=== PATIENT | female | born 1975 | race Caucasian/White ===

== ENCOUNTER → 2024-06-09 08:33 | Outpatient (REF) | payer BC, SELFPAY | LOC: WDC 08:33 | PROVIDERS: ATTENDING PHYSICIAN Internal Medicine | DX: Z12.31 Encounter for screening mammogram for malignant neoplasm of breast (principal) | CPT/HCPCS: 77063; 77067 ==

== ENCOUNTER → 2024-07-31 15:11 | Outpatient (REF) | payer BC, SELFPAY ==
[2024-07-31 16:22] LABS: % Basophils 0.8 % (0-2); % Eosinophils 3.4 % (0-6); % Immature Granulocytes 0.3 % (0-0.5); % Lymphocytes 49.5 % (20.5-51.1); % Monocytes 6.2 % (1.7-9.3); % Neutrophils 39.8 % (42.2-75.2); Absolute Basophils 0.1 10^3/uL (0-0.2); Absolute Eosinophils 0.2 10^3/uL (0-0.7); Absolute Monocytes 0.4 10^3/uL (0.1-0.6); Absolute Neutrophils 2.4 10^3/uL (1.4-6.5); Hematocrit 32.9 % (37.0-47.0); Hemoglobin 10.7 g/dL (12.0-16.0); Mean Corp Hgb Conc. 32.5 g/dL (33.0-37.0); Mean Corpuscular Hgb 27.2 pg (27.0-31.0); Mean Corpuscular Volume 83.5 fL (81.0-99.0); Mean Platelet Volume 9.5 fL (7.4-10.4); Nucleated Red Blood Cells % 0 %; Platelet Count 366 10^3/uL (130-400); Red Blood Cell Count 3.94 10^6/uL (4.20-5.40); Red Cell Dist. Width 13.8 % (11.5-14.5); White Blood Cell Count 6.1 10^3/uL (4.8-10.8)
[2024-07-31 16:28] LABS: INR 0.96; PT 13.1 Sec (11.4-14.6)
[2024-07-31 16:50] LABS: FSH 17.1 mIU/ml
[2024-07-31 17:04] LABS: TSH Reflex To Free T4 1.18 uIU/ml (0.47-4.68)
[2024-07-31 17:06] LABS: Estradiol 74.4 pg/ml
== END ==
LOC: RAD 15:11
PROVIDERS: ATTENDING PHYSICIAN Obstetrics & Gynecology; FAMILY PHYSICIAN Internal Medicine
DX: N92.0 Excessive and frequent menstruation with regular cycle (principal)
CPT/HCPCS: 36415; 76830; 76856; 82670; 83001; 83002; 84443; 85025; 85610; 85730

== ENCOUNTER 2025-02-16 21:17 | Inpatient (IN) | payer BC, SELFPAY ==
[2025-02-16 13:33] VITALS: BP 142/83
--- NOTE | 2025-02-16 16:28 | ED.GENMED ---
History of Present Illness
General
Chief Complaint: Eye Problems
Source: patient
Exam Limitations: none
Time Seen by Provider: 02/16/25 15:38
Nursing documentation reviewed up to this point in time: agreed with
History of Present Illness
History of Present Illness:
49-year-old female with history of celiac disease who presents to the emergency department for evaluation of right eye pain and swelling, double vision. Patient reports that Tuesday she woke up with swelling and discomfort around the right eye.
She says that she has a history of multiple allergies to food and initially thought it could be an allergic reaction to something she ate for dinner. She went to see her primary doctor and was told to trial antihistamines. She says that she has
been taking Benadryl but eye puffiness has not improved and she is having increasing pain around the eye. She says she is having worsening double vision since yesterday and decided to come to the ER for assessment. She has not had any rash�no
redness or lesions noted. She denies any redness of the eye itself. She denies any headache. She denies trauma to the eye. She denies any other acute complaints.
Past History
Past History
ED Past Medical History: Other (Migraines, COVID, Celiacs disease); Negative Asthma, HTN, Hypercholesterolemia or NIDDM
ED Past Surgical History:
Social History
Tobacco: Former smoker
Alcohol: None
Drug: None
Personal:
Living: with family
Review of Systems
Review of Systems
All Other Systems: ROS reviewed and negative except as documented in HPI and ROS
Constitutional: Denies fever or chills
EENT: Reports other (Double vision, swelling and pain right eye)
Respiratory: Denies trouble breathing
Cardiac: Denies chest pain
ABD/GI: Denies abdominal pain, vomiting or diarrhea
Skin: Denies rash
Neurological: Reports other (Diplopia); Denies headache
Phy Exam
Physical Exam
Physical Exam:
General: Awake, alert, oriented x3; no acute distress
Head: Normocephalic, atraumatic
Eyes: Patient has right periorbital edema, no erythema or rash noted; conjunctiva normal�specifically no conjunctival injection in the right; she has ophthalmoplegia on lateral gaze in the right eye, extraocular movements are intact in the left eye;
no proptosis
Ears: Right external ear and canal clear, TM clear on the right
Throat: Airway intact, handling secretions�no perioral swelling, no swelling of the tongue or uvula
Neck: Trachea midline, supple without meningismus
Lungs: Breathing comfortably with no distress
Heart: Regular rate
Neuro: Ophthalmoplegia right eye as above, cranial nerves otherwise intact, motor and sensory intact in all extremities, speech fluid without dysarthria or aphasia
Skin: No rash noted
Extremities: No edema in extremities, equal pulses in all extremities
Scores
Heart Failure Risk
Heart Failure Risk Score: Not Applicable
Heart Score for Chest Pain Patients
STEMI patient?: Not applicable
Withdrawal Assessment of Alcohol
Withdrawal Assessment Completed?: Not applicable
Course
Orders/Labs/Results
Orders:
Orders
02/16/25 15:51
Visual Acuity- Treatment ONCE
02/16/25 16:24
CT Orbits With Iv Contrast Urgent
Comment:
Reason For Exam: right eye pain and swelling, c/f orbital celluliti
02/16/25 16:25
CT Head W/o Iv Contrast Urgent
Comment:
Reason For Exam: right CN 6 palsy
Test Result ONCE
02/16/25 17:37
Complete Blood Count/With Diff Urgent
Comprehensive Metabolic Panel Urgent
HCG, Serum Qualitative Screen Urgent
02/16/25 19:19
Acetaminophen [Tylenol] 1,000 mg PO NOW STA
Abnormal Lab Results
02/16/25
17:37
Hgb 11.5 L g/dL
(12.0-16.0)
Hct 35.0 L %
(37.0-47.0)
MCHC 32.9 L g/dL
(33.0-37.0)
RDW 14.6 H %
(11.5-14.5)
Chloride 115 H mmol/L
(98-107)
Carbon Dioxide 20 L mmol/L
(22-30)
Glucose 100 H mg/dl
(70-99)
02/16/25 17:37
02/16/25 17:37
Vital Signs
Initial and Last Documented VS:
Initial Vital Signs
Temp Pulse Resp BP Pulse Ox
36.8 C 96 16 142/83 97
02/16/25 13:33 02/16/25 13:33 02/16/25 13:33 02/16/25 13:33 02/16/25 13:33
Last Documented Vital Signs
Temp Pulse Resp BP Pulse Ox
36.8 C 82 16 114/66 98
02/16/25 13:33 02/16/25 19:31 02/16/25 19:31 02/16/25 19:31 02/16/25 19:31
MDM/Problems Addressed
Differential Diagnosis Includes:
Orbital cellulitis, retrobulbar hematoma, angioedema, stroke less likely clinically
MDM/Problems Addressed:
49-year-old female presents for evaluation of pain, swelling near the right eye and worsening double vision over the past 24 hours. No trauma. Vitals and exam as above. She does have periorbital edema and ophthalmoplegia in the right eye But
interestingly no erythema, no rash, not warm or indurated. Chief clinical concern would be preseptal cellulitis with progression orbital cellulitis given her diplopia with ophthalmoplegia. Plan to place an IV send basic labs. Will check CT of the
orbits as well as CT of the brain. Will monitor closely reassess at the above.
Labs reviewed and unremarkable. CT showed severe asymmetric enlargement hyperenhancement of the right superior rectus muscle. Possibilities including acute inflammatory disease, infection, lymphoma or venous congestion from ophthalmic vein
thrombus. Orbital cellulitis I think is a consideration given progression from periorbital disease to orbital disease however I did discuss the case with ophthalmology directly and they think clinical picture fits more consistent with an acute
inflammatory pathology. Recommended adding inflammatory markers, thyroid studies, treating empirically with steroids while covering with antibiotics as well. Ophthalmic venous thrombus much less likely can monitor clinically for now. Will admit
for continued close monitoring. Discussed case with hospitalist.
*Radiology
Radiology exam reviewed: radiology read reviewed
*Pulse Oximetry
SaO2: 97
Oxygen Mode of Delivery: Room air
Patient hypoxic: no (97%)
*Critical Care Note
Total Time (30-74mins, 75-104mins- exclusive of procedures): Not Applicable
Data Reviewed
Source: patient and records
ED Attending Note
-
Portions of this chart may have been created with voice recognition software.� Occasional wrong word or��sound alike� substitutions may have occurred due to the inherent limitations of voice recognition software.
Discharge Plan
Departure
Patient Disposition: Admit
Date of Disposition: 02/16/25
Time of Disposition: 20:04
Admit to doctor: Akash
Presentation/result/management discussed w/ accepting MD/DO: Hospitalist
Discharge Problem:
Inflammatory myopathy, Ophthalmoplegia
Prescriptions:
No Action
cetirizine 10 MG tablet
10 mg PO DAILY
topiramate 25 MG tablet
75 mg PO BID
Women's Multivitamin Gummies
1 gum PO DAILY
lorazepam 0.5 MG tablet
0.5 mg PO Q4HPRN PRN (Reason: anxiety)
rimegepant [Nurtec ODT] 75 MG tablet,disintegrating
75 mg PO PRN PRN (Reason: migraines)
Referrals:
Zakrzewski,Tommy J., DO [Family Provider, Internal Medicine]
Interventions
Interventions:
*Risk Screen - Suicide Last Done: 02/16/25 13:33
*General Assessment Last Done: 02/16/25 17:44
*Neglect/Abuse Screening Last Done: 02/16/25 13:33
*ED- Fall Risk Assessment Last Done: 02/16/25 17:44
*ED COVID-19 Vaccine History Last Done: 02/16/25 17:44
Discharge Date and Time
Print Language: YI
[2025-02-16 17:44] VITALS: BP 134/53; BMI 29.0
[2025-02-16 17:45] LABS: Hematocrit 35.0 % (37.0-47.0); Hemoglobin 11.5 g/dL (12.0-16.0); Mean Corp Hgb Conc. 32.9 g/dL (33.0-37.0); Mean Corpuscular Volume 82.9 fL (81.0-99.0); Nucleated Red Blood Cells % 0 %; Platelet Count 339 10^3/uL (130-400); Red Cell Dist. Width 14.6 % (11.5-14.5)
[2025-02-16 18:02] LABS: HCG, Serum Qualitative Screen Negative
[2025-02-16 18:13] LABS: ALT (SGPT) 12 U/L (0-35); AST (SGOT) 14 U/L (14-36); Albumin 4.0 g/dl (3.5-5.0); Alkaline Phosphatase 40 U/L (38-126); Blood Urea Nitrogen 8 mg/dl (7-17); Calcium 9.9 mg/dl (8.4-10.2); Carbon Dioxide 20 mmol/L (22-30); Chloride 115 mmol/L (98-107); Estimated Creatinine Clearance 100 ml/min; Glucose 100 mg/dl (70-99); Potassium 4.1 mmol/L (3.5-5.1); Sodium 141 mmol/L (135-145); Total Protein 6.9 g/dl (6.3-8.2); eGFR > 60.00
[2025-02-16] MEDS: TYLENOL 1000 MG PO (19:28)
[2025-02-16 19:31] VITALS: BP 114/66
[2025-02-16 20:28] LABS: C-Reactive Protein 5.60 mg/L (0.0-10.00)
--- NOTE | 2025-02-16 20:41 | HPS.HSE ---
Family Physician
-
Family Physician: Tommy De Jesus
Chief Complaint
-
eye puffiness
History of Present Illness
49-year-old female past medical history of celiac disease, migraines presented to emergency room for right eye pain and swelling and double vision. She woke up 3 days ago with swelling and discomfort around the right eye. She states that she has a
history of multiple allergies to food and she thought it could be allergic reaction to something she ate. Went to see primary care physician and was told to trial antihistamines without improvement and worsening pain around the eye. She is having
worsening double vision since yesterday with both eyes open and decided to come to the emergency room. Denies any rash or redness. She has headache but unlike her normal migraines. Denies trauma to the eye.
No family history of autoimmune disorders.
Denies smoking or alcohol or drugs.
Medical History
Past Medical History
Past Medical History: Reports Other (celiac disease, migraines)
Past Surgical History: Reports None
Social History
Tobacco: Non-smoker
Alcohol: None
Drug: None
Family History
Family History: Not pertinent
Allergies / Home Medications
Allergies reflects when Allergies were last updated in [employer].
Home Medications with original date entered in [employer]
Allergy/Medication List:
Allergies
Allergy/AdvReac Type Severity Reaction Status Date / Time
adhesive Allergy Rash Verified 02/16/25 13:33
Penicillins Allergy Rash Verified 02/16/25 13:33
Home Medications
Women's Multivitamin Gummies 1 gum PO DAILY 12/02/21
cetirizine 10 mg tablet 10 mg PO DAILY 12/02/21
lorazepam 0.5 mg tablet 0.5 mg PO Q4HPRN PRN anxiety 12/02/21
rimegepant 75 mg disintegrating tablet (Nurtec ODT) 75 mg PO PRN PRN migraines 12/02/21
topiramate 25 mg tablet 75 mg PO BID 12/02/21
Review of Systems
-
History Source: Patient
A 12 point ROS was completed and negative except as noted: Yes
Constitutional: Reports No Symptoms
EENT: Reports See HPI
Respiratory: Reports No Symptoms
Cardiac: Reports No Symptoms
Abdomen/GI: Reports No Symptoms
: Reports No Symptoms
Musculoskeletal: Reports No Symptoms
Skin: Reports No Symptoms
Neurological: Reports No Symptoms
Endocrine: Reports No Symptoms
Hematologic/Lymphatic: Reports No Symptoms
Psych: Reports No Symptoms
Physical Exam
Vital Signs
Vital Signs
Temp Pulse Resp BP Pulse Ox
98.2 F 82 16 114/66 98
02/16/25 13:33 02/16/25 19:31 02/16/25 19:31 02/16/25 19:31 02/16/25 19:31
Physical Exam
General: Well Developed, Well Nourished and No Apparent Distress
HEENT: NormoCephalic, Moist mucous membranes, Atraumatic and Other (pain with extraocular movements )
Respiratory: Clear
Cardiac: S1/S2 and Regular Rhythm; No Murmur or Rub
GI: Soft, Non Tender, Non Distended and Normal Bowel Sounds; No Organomegaly
Rectal: Deferred by Provider
Musculoskeletal: No Clubbing, No Cyanosis and No Edema
Skin: No Rash
Neuro: Nonfocal/grossly intact
Laboratory Results
-
02/16/25 17:37
02/16/25 17:37
Laboratory Results
Total Bilirubin 0.4 mg/dl (0.2-1.3) 02/16/25 17:37
AST 14 U/L (14-36) 02/16/25 17:37
ALT 12 U/L (0-35) 02/16/25 17:37
Alkaline Phosphatase 40 U/L (38-126) 02/16/25 17:37
Data Reviewed
-
Lab Data: Labs Reviewed by me
Old Records: Reviewed
Impression/Plan
-
IMPRESSION:
PLAN:
# Severe enlargement of the right superior rectus muscle possibly secondary to acute inflammatory disease secondary to thyroid orbitopathy, versus idiopathic versus IgG4 related versus sarcoidosis versus Dario's versus orbital cellulitis versus
lymphoma versus orbital venous congestion from thrombus of the superior ophthalmic vein
-As per CT orbit
- CT head negative
- TSH, ESR and CRP pending
-Check SSA, SSB, ANCA, IgG4, NIKO
- ER spoke with ophthalmology (Prince Brower) who recommends steroids and empiric antibiotics for the possibility of orbital cellulitis. Ophthalmology thinks that ophthalmic vein thrombosis is unlikely
- Dexamethasone 4q 12
- Vancomycin/ceftriaxone
Celiac disease
Migraine history
- Continue topiramate,
Full code
DVT prophylaxis�heparin
Regular diet
[2025-02-16] MEDS: ROCEPHIN 2000 MG IV (21:14)
[2025-02-16] MEDS: SOLU-MEDROL PF 125 MG IV (21:14)
[2025-02-16] MEDS: VANCOCIN 540 MG IV (21:25)
--- NOTE | 2025-02-16 21:42 | PHA.VAN.IN ---
Addendum entered and electronically signed by Salena De Jesus [facility] 02/16/25 21:48:
Estimated trough 11
Original Note:
Assessment
- Assessment
Renal Function: Appears similar to baseline
Maximum Temperature: 98.2F
Concomitant Antimicrobials: Ceftriaxone
AUC Dosing Plan
- Dosing Variables
Dosing Weight (kg): 76.6
Dosing CrCl (ml/min): 100
Vd coefficient (L/kg): 0.7
- Empiric Dosing
Initial / Loading Dose: 2000 mg
Maintenance Regimen: 1000 mg q12h
Estimated AUC (mcg*h/mL): 445
Estimated Peak (mcg*h/mL): 28.7
Estimated Trough (mcg/ml): 7.9
Estimated Half Life (H): 7.9
- Monitoring
No levels ordered at this time: Awaiting steady state
Pharmacokinetics Vancomycin I
- -
Patient Age: 49
Patient Sex: Female
Vancomycin Day #: 1
Indication: Eye Or Ent Infection
Requesting Provider: Malcolm
Pertinent Antimicrobial Allergies:
Penicillins - rash
Height / Weight:
Height 5 ft 4 in
Actual Weight 76.6 kg
IBW in k.7 kg
Adjusted BW in k.5 kg
Pertinent Past Medical History: 3 days R eye swelling unresponsive to antihistamines, BMI 29
- Vital Signs / Lab Results
Temp Pulse Resp BP Pulse Ox
98.2 F 82 16 114/66 98
02/16/25 13:33 02/16/25 19:31 02/16/25 19:31 02/16/25 19:31 02/16/25 19:31
Lab Results - Hematology
02/16/25 02/16/25
13:33 17:37
WBC Cancelled 8.2
Lab Results - Chemistry
02/16/25 02/16/25
13:33 17:37
BUN Cancelled 8
Creatinine Cancelled 0.7
Estimated Creat Clear Cancelled 100
Albumin 4.0
[2025-02-16 21:43] VITALS: BP 145/77; BMI 28.0
[2025-02-16] MEDS: DECADRON 4 MG IV (22:15)
--- NOTE | 2025-02-17 05:28 | PTCARENOTE ---
02/16 2200 received pt from ER. pt ambulated to bed. IV vancocyin infusing at this time. Oriented to room, POC and call chowdhury. pt verb understanding
[2025-02-17] MEDS: VANCOCIN 200 IV ×2 (05:34→18:19)
[2025-02-17 05:54] LABS: Hematocrit 35.9 % (37.0-47.0); Hemoglobin 11.9 g/dL (12.0-16.0); Mean Corp Hgb Conc. 33.1 g/dL (33.0-37.0); Mean Corpuscular Volume 82.3 fL (81.0-99.0); Nucleated Red Blood Cells % 0 %; Platelet Count 327 10^3/uL (130-400); Red Cell Dist. Width 14.5 % (11.5-14.5)
[2025-02-17 06:33] LABS: ALT (SGPT) 12 U/L (0-35); AST (SGOT) 16 U/L (14-36); Albumin 4.0 g/dl (3.5-5.0); Alkaline Phosphatase 39 U/L (38-126); Blood Urea Nitrogen 7 mg/dl (7-17); Calcium 9.3 mg/dl (8.4-10.2); Carbon Dioxide 15 mmol/L (22-30); Chloride 117 mmol/L (98-107); Estimated Creatinine Clearance 114 ml/min; Glucose 157 mg/dl (70-99); Potassium 4.4 mmol/L (3.5-5.1); Sodium 139 mmol/L (135-145); Total Protein 6.9 g/dl (6.3-8.2); eGFR > 60.00
[2025-02-17 07:25] VITALS: BP 104/81
--- NOTE | 2025-02-17 08:39 | W.PN.HOSP.TC ---
Today's Communication/Plan
-
see A/P
Assessment / Plan
Assessment / Plan
HPI: 49-year-old female past medical history of celiac disease, migraines; presented to emergency room for right eye pain, swelling and double vision. She woke up 3 days ago [employer] with swelling and discomfort around the right eye. She states that
she has a history of multiple allergies to food and she thought it could be allergic reaction to something she ate.
Went to see primary care physician and was told to trial antihistamines without improvement and worsening pain around the eye.
She was having worsening double vision with both eyes open and decided to come to the emergency room. Denies any rash or redness. She has headache but unlike her normal migraines. Denies trauma to the eye.
No family history of autoimmune disorders.
Denies smoking or alcohol or drugs.
A/P:
# Severe enlargement of the right superior rectus muscle of R eye,
Diagnostic possibilities are (1) acute inflammatory disease (thyroid orbitopathy, idiopathic orbital inflammation, IgG4 orbital disease, sarcoidosis, or granulomatosis polyangiitis), (2) acute infection (orbital cellulitis), (3) lymphoma, or (4)
orbital venous congestion from thrombosis of the superior ophthalmic vein.
CT head negative
CT orbit report noted
ER spoke with ophthalmology (Prince Brower) who recommended steroids and empiric antibiotics for the possibility of orbital cellulitis. Ophthalmology thinks that ophthalmic vein thrombosis is unlikely
Cont Dexamethasone 4 mg Q12
Cont Vancomycin/ceftriaxone to cover for possible orbital cellulitis
ID CS
noted TSH WNL at 0.64
ESR and CRP WNL
SSA, SSB, ANCA, IgG4, NIKO sent, follow up
# Celiac disease
# Migraine history
Continue topiramate,
Full code
DVT prophylaxis�heparin
Regular diet
DW RN
Anticipated Discharge: 24 - 48 hours
Subjective/Interval History
-
Date of Service: February 17, 2025
Objective Data
-
Labs:
Laboratory Results
02/17/25
05:03
WBC 4.8
Hgb 11.9 L
Hct 35.9 L
Plt Count 327
Sodium 139
Potassium 4.4
Chloride 117 H
Carbon Dioxide 15 L
BUN 7
Creatinine 0.5 L
Glucose 157 H
Calcium 9.3
Total Bilirubin 0.4
AST 16
ALT 12
Alkaline Phosphatase 39
Vital Signs:
Vital Signs
Temp Pulse Resp BP Pulse Ox
36.7 C 74 16 104/81 99
02/17/25 07:25 02/17/25 07:25 02/17/25 07:25 02/17/25 07:25 02/17/25 07:25
I&O
02/16/25 02/17/25 02/18/25
06:59 06:59 06:59
Intake Total 480 / 480
Balance 480 / 480
Review of Systems
-
History Source: Patient
EENT: Reports Blurry Vision (R eye ), Eye Pain (R eye ) and Decreased Vision (R eye )
Physical Exam
-
General: Well Developed, Well Nourished, No Apparent Distress, Comfortable and Conversant; Negative Respiratory Distress
HEENT: Normocephalic, Atraumatic, No Ptosis, Nose Appears Normal, Ears Appear Normal and Other (Mild R eye swelling on upper lid); Negative [place] Conjunctivae or Oxygen
Respiratory: Clear to Auscultation and Non Labored Respirations; Negative Accessory Resp Muscle Use
Cardiac: Regular Rhythm and S1/S2
GI: Soft, Nontender, Nondistended and Normal Bowel Sounds
Skin: Warm and Dry
Neuro: Awake, Alert, Oriented and AO x 3
Psych: Calm and Intact Judgement/Insight
Data Reviewed
-
CT Scan: Report Reviewed by me
Labs: Labs Reviewed by me
[2025-02-17] MEDS: DECADRON 4 MG IV ×2 (08:56→21:42)
[2025-02-17] MEDS: TOPAMAX 75 MG PO ×2 (10:06→20:26)
--- NOTE | 2025-02-17 10:55 | CM ---
CM reviewed chart. Pt presented to ER for right eye pain, swelling and double vision.
# Severe enlargement of the right superior rectus muscle of R eye.
Cont steriods and ivabx.
Pt has no skilled needs noted at this time.
Should pts needs change please consult CM/SW.
CM/SW will continue to follow to ensure a safe and timely dc.
--- NOTE | 2025-02-17 11:27 | CON.ID ---
Consultation
-
Date/Time Consultation Requested: February 17, 2025 [id number]
Date/Time Consultation Performed: February 17, 2025 1130
Requesting Provider: Dr. Leigha Thornton
Performing Provider: Dr. Louise Henao
Reason for Consultation: Orbital cellulitis
Chief Complaint / Past History
Chief Complaint
Right eye pain
History of Present Illness
49-year-old female with history of celiac disease who presented to the hospital yesterday complaining of eye pain and visual changes. On Tuesday, February 13, she woke up with swelling around her right eye. No erythema. Positive discomfort
behind the eye. No discharge or drainage. Initially she thought possible reaction to something she ate due to underlying celiac disease. She saw her PCP who prescribed eyedrops and antihistamines. However periorbital edema persisted. Then she
develop worsening eye pain with movement. Yesterday, she developed double vision and right blurry vision. She reports no fevers or chills. Has right side headache. No recent rhinosinusitis or any upper respiratory tract infections. No trauma.
She has 4 adult cats at home one of them outside cat. No cat bites or cat scratches. Cats do not have fleas. She also has 2 dogs. In ED afebrile, normal white count. CT of the head and orbits: Low-lying cerebellar tonsils, mucous retention
cysts in the right maxillary sinus, severe asymmetric enlargement and hyperenhancement of the right superior rectus muscle. Optho recommended steroid and antibiotics. Today she reports that the periorbital edema have significantly improved. She
still right blurry vision. With both eyes open, she has diplopia.
Past History
Additional Past Medical History:
Celiac disease
Migraines
Additional Past Surgical History:
Diagnostic hysteroscopy, D and C
Allergy History:
adhesive Allergy (Verified 02/16/25 13:33)
Rash
Penicillins Allergy (Verified 02/16/25 13:33)
Rash
Medications Reviewed: Yes
Current Antibiotics:
Vancomycin
Ceftriaxone
Social History
Tobacco: Non-Smoker
Alcohol: None
Drug: None
Personal:
Living: With Family
Family History
Family History: Not Pertinent
Review of Systems
Review of Systems
General: Negative Fever, Chills or Change in Appetite
HEENT: Negative Lymphadenopathy, Stiff Neck, Sinus Problems or Pharyngitis
Cardiovascular: Negative Chest Pain or Dyspnea
Respiratory: Negative Dyspnea or Cough
Gasteroenterology: Negative Nausea, Vomiting or Diarrhea
Genital / Urological: Negative Dysuria or Flank Pain
Endocrine: Negative Weakness or Fatigue
Neurological: Negative Dizziness
All systems: All other systems were reviewed and were negative
Vital Signs
Temp Pulse Resp BP Pulse Ox
98.0 F 74 16 104/81 98
02/17/25 07:25 02/17/25 07:25 02/17/25 07:25 02/17/25 07:25 02/17/25 09:53
Physical Exam
Physical Exam
Constitutional: No Acute Distress and Comfortable
Head: Other (No sinus tenderness)
Eyes: Pupils Equal, Pupils Round, No Conjunctival Hemorrhage, Sclera Anicteric and Other (Minimal R periorbital edema, no erythema. Conjunctiva and sclera normal. ); Negative Erythema or Ocular Discharge
Pharynx: Benign
Cardiovascular: Regular Rate and S1/S2
Pulmonary: Clear
Gastrointestinal: Soft, Non Tender and Non Distended
Genito-Urinary: Negative CVA Tenderness
Neurological: AO x 3
Lab / Diagnostic Study Results
02/17/25 05:03
02/17/25 05:03
Abs Immat Gran (auto) 0.0 10^3/uL (0-0.05) 02/17/25 05:03
Absolute Neuts (auto) 3.8 10^3/uL (1.4-6.5) 02/17/25 05:03
Absolute Lymphs (auto) 0.9 10^3/uL (1.2-3.4) L 02/17/25 05:03
Absolute Monos (auto) 0.0 10^3/uL (0.1-0.6) L 02/17/25 05:03
Absolute Basos (auto) 0.0 10^3/uL (0-0.2) 02/17/25 05:03
Immature Gran % 0.2 % (0-0.5) 02/17/25 05:03
Neutrophils % 80.0 % (42.2-75.2) H 02/17/25 05:03
Lymphocytes % 19.0 % (20.5-51.1) L 02/17/25 05:03
Monocytes % 0.6 % (1.7-9.3) L 02/17/25 05:03
Eosinophils % 0.0 % (0-6) 02/17/25 05:03
Basophils % 0.2 % (0-2) 02/17/25 05:03
ESR 15 mm/hour (0-20) 02/16/25 17:37
C-Reactive Protein 5.60 mg/L (0.0-10.00) 02/16/25 17:37
Microbiology Results
02/16/25 CT head/orbits: Severe asymmetric enlargement and hyperenhancement of the right superior rectus muscle. Diagnostic possibilities are (1) acute inflammatory disease (thyroid orbitopathy, idiopathic orbital inflammation, IgG4 orbital disease,
sarcoidosis, or granulomatosis polyangiitis), (2) acute infection (orbital cellulitis), (3) lymphoma, or (4) orbital venous congestion from thrombosis of the superior ophthalmic vein.
Assessment / Plan
# Right orbital cellulitis vs other inflammatory condition
- Afebrile and no rhinosinusitis which make orbital cellulitis less likely.
- However, will treat empirically with Vancomycin, ceftriaxone, and add metronidazole.
- Work-up for auto-immune source.
- Continue steroid.
--- NOTE | 2025-02-17 11:35 | PHA.VAN.FU ---
Vancomycin Assessment / Plan
- Assessment
Renal Function: SCR Decreasing
WBC's are: WNL
In the past 24 hrs, patient has been: Afebrile
Concomitant Antimicrobials: ceftriaxone
- Dosing Plan
Continue: 1000mg q12h
- Monitoring Plan
No level(s) ordered at this time: consider as patient approaches steady state
- Follow Up
Pharmacy will continue to follow.
Vancomycin Follow UP
- -
Patient Age: 49
Patient Sex: Female
Vancomycin Day #: 2
Indication: Eye Or Ent Infection
Requesting Provider: Malcolm
Pertinent Antimicrobial Allergies:
Penicillins - rash
Height / Weight:
Height 5 ft 4 in
Actual Weight 74.049 kg
IBW in k.7 kg
Adjusted BW in k.5 kg
- Vital Signs / Lab Results
Temp Pulse Resp BP Pulse Ox
98.0 F 74 16 104/81 98
02/17/25 07:25 02/17/25 07:25 02/17/25 07:25 02/17/25 07:25 02/17/25 09:53
Lab Results - Hematology
02/16/25 02/16/25 02/17/25
13:33 17:37 05:03
WBC Cancelled 8.2 4.8
Lab Results - Chemistry
02/16/25 02/16/25 02/17/25
13:33 17:37 05:03
BUN Cancelled 8 7
Creatinine Cancelled 0.7 0.5 L
Estimated Creat Clear Cancelled 100 114
Albumin 4.0 4.0
[2025-02-17 15:20] VITALS: BP 105/68
[2025-02-17] MEDS: FLAGYL 500 MG PO ×2 (15:24→21:44)
[2025-02-17] MEDS: TYLENOL 650 MG PO (20:37)
[2025-02-17] MEDS: FLUSH (NSS) 3 FLUSH IV (21:43)
[2025-02-17] MEDS: ROCEPHIN 1000 MG IV (21:43)
[2025-02-17] MEDS: STERILE WATER FOR INJECTION 10 ML IV (21:44)
[2025-02-17 23:34] VITALS: BP 106/70
[2025-02-18] MEDS: FLAGYL 500 MG PO (06:05)
[2025-02-18] MEDS: VANCOCIN 200 IV (06:05)
[2025-02-18] MEDS: TYLENOL 650 MG PO (06:09)
[2025-02-18 07:37] VITALS: BP 106/72
[2025-02-18 08:02] LABS: Hematocrit 33.2 % (37.0-47.0); Hemoglobin 11.2 g/dL (12.0-16.0); Mean Corp Hgb Conc. 33.7 g/dL (33.0-37.0); Mean Corpuscular Volume 82.8 fL (81.0-99.0); Platelet Count 360 10^3/uL (130-400); Red Cell Dist. Width 14.8 % (11.5-14.5)
--- NOTE | 2025-02-18 08:14 | W.PN.HOSP.TC ---
Addendum entered and electronically signed by Pinky Thornton MD 02/18/25 12:49:
Extensive discussion with the collision repair technician service delivery manager Dr. Haleigh Velasquez. She could potentially fit the patient in tomorrow. She recommend to continue prednisone until further directed by service delivery manager outpatient.
Patient informed that she actually made an appointment with Dr. addi Julian at [facility] in [place] on 02/19 at 3 pm. Ok with me too.
It is important that she sees an service delivery manager as soon as possible after discharge.
Original Note:
Today's Communication/Plan
-
see A/P
Assessment / Plan
Assessment / Plan
HPI: 49-year-old female past medical history of celiac disease, migraines; presented to emergency room for right eye pain, swelling and double vision. 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 She states that
she has a history of multiple allergies to food and she thought it could be allergic reaction to something she ate.
Went to see primary care physician and was told to trial antihistamines without improvement and worsening pain around the eye.
She was having worsening double vision with both eyes open and decided to come to the emergency room. Denies any rash or redness. She has headache but unlike her normal migraines. Denies trauma to the eye.
No family history of autoimmune disorders.
Denies smoking or alcohol or drugs.
A/P:
# Severe enlargement of the right superior rectus muscle of R eye, improved
Diagnostic possibilities are (1) acute inflammatory disease (thyroid orbitopathy, idiopathic orbital inflammation, IgG4 orbital disease, sarcoidosis, or granulomatosis polyangiitis), (2) acute infection (orbital cellulitis), (3) lymphoma, or (4)
orbital venous congestion from thrombosis of the superior ophthalmic vein.
CT head negative
CT orbit report noted
ER spoke with ophthalmology (Prince Brower) who recommended steroids and empiric antibiotics for the possibility of orbital cellulitis. Ophthalmology thinks that ophthalmic vein thrombosis is unlikely
Cont Dexamethasone 4 mg Q12, cont
Per ID, Afebrile and no rhinosinusitis which make orbital cellulitis less likely.
However, could cont current Vancomycin/ceftriaxone, and added metronidazole.
Work-up for auto-immune source. Pending SSA, SSB, ANCA, IgG4, NIKO
noted TSH WNL at 0.64
ESR and CRP WNL
Appreciate ID input
# Celiac disease
# Migraine history
Continue topiramate,
Full code
DVT prophylaxis�heparin
Regular diet
DW ID
Anticipated Discharge: Within 24 hours
Subjective/Interval History
-
Date of Service: February 18, 2025
Objective Data
-
Labs:
Laboratory Results
02/18/25
07:02
WBC 10.8
Hgb 11.2 L
Hct 33.2 L
Plt Count 360
Sodium Pending
Potassium Pending
Chloride Pending
Carbon Dioxide Pending
BUN Pending
Creatinine Pending
Glucose Pending
Calcium Pending
Vital Signs:
Vital Signs
Temp Pulse Resp BP Pulse Ox
36.7 C 74 17 106/72 99
02/18/25 07:37 02/18/25 07:37 02/18/25 07:37 02/18/25 07:37 02/18/25 07:37
I&O
02/17/25 02/18/25 02/19/25
06:59 06:59 06:59
Intake Total 480 / 480 900 / 900
Balance 480 / 480 900 / 900
Review of Systems
-
History Source: Patient
EENT: Reports Blurry Vision (R eye ), Decreased Vision (R eye ) and Other (R eye swelling has improved ); Denies Eye Pain
Physical Exam
-
General: Well Developed, Well Nourished, No Apparent Distress, Comfortable and Conversant; Negative Respiratory Distress
HEENT: Normocephalic, Atraumatic, No Ptosis, Nose Appears Normal, Ears Appear Normal and Other (R eye swelling of upper lid has improved ); Negative [place] Conjunctivae or Oxygen
Respiratory: Clear to Auscultation and Non Labored Respirations; Negative Accessory Resp Muscle Use
Cardiac: Regular Rhythm and S1/S2
GI: Soft, Nontender, Nondistended and Normal Bowel Sounds
Skin: Warm and Dry
Neuro: Awake, Alert, Oriented and AO x 3
Psych: Calm and Intact Judgement/Insight
Data Reviewed
-
CT Scan: Report Reviewed by me
Labs: Labs Reviewed by me
[2025-02-18 08:17] LABS: Blood Urea Nitrogen 7 mg/dl (7-17); Calcium 9.2 mg/dl (8.4-10.2); Carbon Dioxide 16 mmol/L (22-30); Chloride 115 mmol/L (98-107); Estimated Creatinine Clearance 114 ml/min; Glucose 170 mg/dl (70-99); Magnesium 2.0 mg/dl (1.6-2.3); Potassium 3.8 mmol/L (3.5-5.1); Sodium 139 mmol/L (135-145); eGFR > 60.00
--- NOTE | 2025-02-18 08:36 | PHA.VAN.FU ---
Vancomycin Assessment / Plan
- Assessment
Renal Function: Stable
WBC's are: WNL
In the past 24 hrs, patient has been: Afebrile
Concomitant Antimicrobials: ceftriaxone, metronidazole
- Dosing Plan
Continue: Vanc 1000mg Q12H
- Monitoring Plan
No level(s) ordered at this time: consider levels in next few days
- Follow Up
Pharmacy will continue to follow.
Vancomycin Follow UP
- -
Patient Age: 49
Patient Sex: Female
Vancomycin Day #: 3
Indication: Eye Or Ent Infection
Requesting Provider: Malcolm / Juliano
Pertinent Antimicrobial Allergies:
Penicillins - rash
Height / Weight:
Height 5 ft 4 in
Actual Weight 74.049 kg
Pertinent Past Medical History: 3 days R eye swelling unresponsive to antihistamines, BMI 29
- Vital Signs / Lab Results
Temp Pulse Resp BP Pulse Ox
98.0 F 74 17 106/72 99
02/18/25 07:37 02/18/25 07:37 02/18/25 07:37 02/18/25 07:37 02/18/25 07:37
Lab Results - Hematology
02/16/25 02/16/25 02/17/25
13:33 17:37 05:03
WBC Cancelled 8.2 4.8
02/18/25
07:02
WBC 10.8
Lab Results - Chemistry
02/16/25 02/16/25 02/17/25
13:33 17:37 05:03
BUN Cancelled 8 7
Creatinine Cancelled 0.7 0.5 L
Estimated Creat Clear Cancelled 100 114
Albumin 4.0 4.0
02/18/25
07:02
BUN 7
Creatinine 0.6
Estimated Creat Clear 114
Albumin
--- NOTE | 2025-02-18 09:32 | W.PN.ID1 ---
Date of Service
Date of Service: February 18, 2025
Today's Communication
- DC on Linezolid 600mg po bid, moxifloxacin 400mg po qd x 2 weeks
- Need to see outpatient Optho urgently, upon discharge.
Assessment / Plan
# Right orbital cellulitis vs other inflammatory condition
- Afebrile and no rhinosinusitis which make orbital cellulitis less likely.
- However, will treat with abx as unable to exclude orbital cellulitis.
- DC Vancomycin, ceftriaxone, and add metronidazole.
- DC on Linezolid 600mg po bid, moxifloxacin 400mg po qd x 2 weeks
- Need to see outpatient Optho urgently, upon discharge.
- Work-up for auto-immune source in progress. Onsteroid.
Chief Complaint
-: Other (Orbital )
Subjective / Review of Systems
Swelling around R eye resolved. Still with diplopia, blurry vision.
+ discomfort with R lateral and upward gaze.
Vital Signs / Physical Exam
Vital Signs
Vital Signs
Temp Pulse Resp BP Pulse Ox
98.0 F 74 17 106/72 99
02/18/25 07:37 02/18/25 07:37 02/18/25 07:37 02/18/25 07:37 02/18/25 07:37
Physical Exam
Constitutional: No Acute Distress
Head: Other (No sinus tenderenss)
Eyes: No Conjunctival Hemorrhage, Sclera Anicteric, Erythema, Ocular Discharge and Other (R periorbital edema resolved. No R proptosis.)
Cardiovascular: Regular Rate and S1/S2
Pulmonary: Clear
Gastrointestinal: Soft, Non Tender and Non Distended
Extremities: Negative Edema
Neurological: AO x 3
Objective Data
Lab Data
Lab Results
02/18/25 07:02
02/18/25 07:02
ESR 15 mm/hour (0-20) 02/16/25 17:37
Estimated Creat Clear 114 ml/min 02/18/25 07:02
Total Bilirubin 0.4 mg/dl (0.2-1.3) 02/17/25 05:03
AST 16 U/L (14-36) 02/17/25 05:03
ALT 12 U/L (0-35) 02/17/25 05:03
Alkaline Phosphatase 39 U/L (38-126) 02/17/25 05:03
C-Reactive Protein 5.60 mg/L (0.0-10.00) 02/16/25 17:37
Most recent labs reviewed.
02/16/25 CT head/orbits: Severe asymmetric enlargement and hyperenhancement of the right superior rectus muscle. Diagnostic possibilities are (1) acute inflammatory disease (thyroid orbitopathy, idiopathic orbital inflammation, IgG4 orbital disease,
sarcoidosis, or granulomatosis polyangiitis), (2) acute infection (orbital cellulitis), (3) lymphoma, or (4) orbital venous congestion from thrombosis of the superior ophthalmic vein.
Care Review
Plan reviewed with: Physician (Dr. Thornton)
[2025-02-18] MEDS: TOPAMAX 75 MG PO (09:52)
[2025-02-18] MEDS: DECADRON 4 MG IV (09:56)
--- NOTE | 2025-02-18 10:56 | CM ---
Addendum entered by Michael Vásquez 02/18/25 11:01:
Addition: Left message for Medical Team because saw patient will DC on P.O. Antibiotics and if patient needs IV to let Case Management know.
Original Note:
Following up on patient.
Medical Team might discharge the patient within 24 hours. KWAN Rodriguez checked with patient, she has transportation home, and NO IMM needed.
PLAN: Home no needs
--- NOTE | 2025-02-18 12:43 | W.DCSUMMARY ---
Discharge Summary
Discharge Data
Date of Admission: 02/16/25
Date of Discharge: 02/18/25
Total time spent discharging patient (in min): 40
-
Pending Results: No
Hospital Course
Principal Diagnosis:
Severe enlargement of the right superior rectus muscle of R eye, improved swelling
Chronic Diagnoses:�
Celiac disease
Migraine history, continue topiramate
Consultations:�
Infectious disease
Procedures:�
None
Clinical course:�
This is a 49-year-old female with past medical history as stated above, who presented with right eye pain, swelling and double vision.
Problem 1:
Right eye pain, swelling and double vision due to severe enlargement of the right superior rectus muscle of the R eye, with differentials include (1) acute inflammatory disease (thyroid orbitopathy, idiopathic orbital inflammation, IgG4 orbital
disease, sarcoidosis, or granulomatosis polyangiitis), (2) acute infection (orbital cellulitis), (3) lymphoma, or (4) orbital venous congestion from thrombosis of the superior ophthalmic vein.
Her CT head was negative.
She was started with Dexamethasone 4 mg Q12 while in the hospital, and was discharged with prednisone 40 mg daily.
Per ID, given she has been afebrile and no rhinosinusitis, was felt orbital cellulitis less likely.
Nonetheless, she was kept on IV antibiotics Vancomycin/ceftriaxone, and metronidazole while in the hospital, and was discharged with Linezolid 600mg po bid and moxifloxacin 400mg po qd x 2 weeks.
Work-up for auto-immune source (SSA, SSB, ANCA, IgG4, NIKO) was still pending at the time of discharge.
Of note, her TSH was WNL at 0.64. Her ESR and CRP were WNL.
As for the rest of her medical problems, they were stable during her hospital stay.
Discharge Plan
-
Patient Disposition: Home (Routine Discharge)
Discharge Diagnosis/Procedures: Enlargement of the right superior rectus muscle of R eye, R eye swelling has improved
Condition: Good
Diet: As tolerated
Activity: As tolerated
Driving Restrictions: No driving
Activity Restrictions/Additional Instructions:
Need to see outpatient Optho urgently upon discharge.
Follow up auto-immune work up (SSA, SSB, ANCA, IgG4, NIKO) outpatient with your PCP
Referrals:
Haleigh Velasquez MD [Active, Ophthalmology] - in two to three days
Tommy De Jesus DO [Family Provider, Internal Medicine] - in less than 1 week
Additional Discharge Medication Instructions: Continue Linezolid 600 mg po BID and moxifloxacin 400 mg daily x 2 weeks
(If taking antacid, iron, zinc, magnesium, aluminum, calcium, or sucralfate, take these products 6 hours before or 2 hours after moxifloxacin. Avoid tyramine-rich food products while on linezolid).
Continue prednisone 40 mg daily until further directed by your electric refrigerator preparer
Prescriptions:
New
linezolid 600 mg tablet
600 mg PO Q12H 14 Days Qty: 28 0RF
moxifloxacin 400 mg tablet
400 mg PO DAILY 14 Days Qty: 14 0RF
prednisone 20 mg tablet
40 mg PO DAILY Qty: 60 0RF
Rx Instructions:
continue until further directed by the opthalmologist
Continued
cetirizine 10 MG tablet
10 mg PO PRN PRN (Reason: allergies)
topiramate 25 MG tablet
75 mg PO BID
Women's Multivitamin Gummies
1 gum PO DAILY
lorazepam 0.5 MG tablet
0.5 mg PO Q4HPRN PRN (Reason: anxiety)
Nurtec ODT 75 MG tablet,disintegrating
75 mg PO PRN PRN (Reason: migraines)
Discharge Orders:
Discharge Patient (As Directed); Ordered 02/18/25
Ordered By: Pinky Thornton
Discharge Date and Time
Print Language: CZECH
[2025-02-18 13:07] VITALS: BP 115/74
[2025-02-19 07:13] LABS: ANA, IgG Reflex to HEp-2 None Detected (None Detected)
[2025-02-19 11:47] LABS: Serine Protease-3, IgG 0 AU/mL (0-19)
[2025-02-20 13:29] LABS: SSA 52 (Ro)(ENA) Ab, IgG 1 AU/mL (0-40); SSA 60 (Ro)(ENA) Ab, IgG 0 AU/mL (0-40); SSB (La)(ENA) Ab, IgG 11 AU/mL (0-40)
== END 2025-02-18 14:09 | disposition home or self-care (01) | DRG 123 ==
LOC: 4 WEST ACU 21:17
PROVIDERS: ADMITTING PHYSICIAN Hospitalist; ATTENDING PHYSICIAN Internal Medicine; CONSULT PHYSICIAN Internal Medicine Infectious Disease; EMERGENCY PHYSICIAN Emergency Medicine; FAMILY PHYSICIAN Internal Medicine
DX: H05.821 Myopathy of extraocular muscles, right orbit (principal); K90.0 Celiac disease; G43.909 Migraine, unspecified, not intractable, without status migrainosus; Z87.891 Personal history of nicotine dependence; Z79.899 Other long term (current) drug therapy
CPT/HCPCS: 70450; 70481; 80048; 80053; 82787; 83516; 83735; 84443; 84703; 85025; 85027; 85652; 86038; 86140; 86235; 99285; Q9967